=== PATIENT | female | born 1960 | race Asian ===

== ENCOUNTER 2017-03-19 19:14 | Emergency (ER) | payer BC ==
[2017-03-19] MEDS: LORAZEPAM 1 MG TAB PO (19:52)
[2017-03-19] MEDS ORDERED: ONDANSETRON (ODT) 4 MG TAB ODT (21:33)
== END 2017-03-19 21:42 | disposition home or self-care (01) ==
LOC: FTE 19:14
DX: R07.89 Other chest pain (principal); I10 Essential (primary) hypertension
CPT/HCPCS: 71046; 93005; 99284-25

== ENCOUNTER 2018-07-15 18:24 | Emergency (ER) | payer BC ==
[2018-07-15] MEDS: NICARDipine HCL 30 MG CAPSULE PO (20:07)
== END 2018-07-15 20:30 | disposition home or self-care (01) ==
LOC: E/R 18:24
DX: I10 Essential (primary) hypertension (principal); R40.2142 Coma scale, eyes open, spontaneous, at arrival to emergency department; R40.2252 Coma scale, best verbal response, oriented, at arrival to emergency department; R40.2362 Coma scale, best motor response, obeys commands, at arrival to emergency department
CPT/HCPCS: 93005; 99283-25